=== PATIENT | female | born 1955 | race Asian ===

== ENCOUNTER 2017-01-18 10:28 | Emergency (ER) | payer SELFPAY ==
[~2017-01-18] VITALS: Ht 165.1 cm; Wt 50.0 kg
[2017-01-18 10:41] VITALS: Ht 165.1 cm; Wt 50.0 kg
== END 2017-01-18 11:10 | disposition left against medical advice (07) ==
LOC: FTE 10:28
DX: Z53.21 Procedure and treatment not carried out due to patient leaving prior to being seen by health care provider (principal)